=== PATIENT | female | born 1960 | race African-American/Black ===

== ENCOUNTER 2019-01-13 22:57 | Inpatient (IN) | payer OTHER ==
[2019-01-13 23:19] VITALS: BMI 30.9
--- NOTE | 2019-01-13 23:21 | PDOC ---
History of Present Illness - General Chief Complaint: Pain, Acute Stated Complaint: Flank Pain Time Seen by Provider: 01/13/19 23:20 - History of Present Illness Initial Comments: 01/13/19 23:20 Ms. Lima is a 58 yo female w/ pmh of kidney stones 6 months ago at another hospital who presents for evaluation of 2 hour history of sudden onset RLQ abdominal pain. Patient reports it is similar to her previous episode of kidney stones in nature. Ms. Lima reports she took an antibiotic she was given for her previous episode and had mild nausea afterwards. She had previously not taken the antibiotics proscribed to her however reports her pain had improved. The patient denies chest pain, shortness of breath, headache and dizziness. Denies fever, chills, nausea, vomit, diarrhea and constipation. Denies dysuria, frequency, urgency and hematuria. Past History - Past Medical History Allergies/Adverse Reactions: Allergies Allergy/AdvReac Type Severity Reaction Status Date / Time No Known Allergies Allergy Verified 01/13/19 23:19 Home Medications: Ambulatory Orders Cefuroxime Axetil [Ceftin -] 500 mg PO Q12H #20 tablet 01/14/19 Potassium Citrate [Potassium Citrate ER] 15 meq PO BID #60 tablet.er 01/14/19 Tamsulosin HCl [Flomax] 0.4 mg PO DAILY #30 capsule 01/14/19 Celecoxib [Celebrex -] 100 mg PO BID #60 capsule 01/15/19 - Suicide/Smoking/Psychosocial Hx Smoking History: Current every day smoker Have you smoked in the past 12 months: Yes Number of Cigarettes Smoked Daily: 5 Information on smoking cessation initiated: No Hx Alcohol Use: Yes Drug/Substance Use Hx: No Review of Systems - Review of Systems Comments:: 01/13/19 23:20 GENERAL/CONSTITUTIONAL: No fever or chills. No weakness. HEAD, EYES, EARS, NOSE AND THROAT: No change in vision. No ear pain or discharge. No sore throat. CARDIOVASCULAR: No chest pain or shortness of breath RESPIRATORY: No cough, wheezing, or hemoptysis. GASTROINTESTINAL: +RLQ pain as described. Mild nausea after taking unknown ABX, no vomiting. Single episode of loose stool today. GENITOURINARY: No dysuria, frequency, or change in urination. MUSCULOSKELETAL: No joint or muscle swelling or pain. No neck or back pain. SKIN: No rash NEUROLOGIC: No headache, vertigo, loss of consciousness, or change in strength/ sensation. ENDOCRINE: No increased thirst. No abnormal weight change HEMATOLOGIC/LYMPHATIC: No anemia, easy bleeding, or history of blood clots. ALLERGIC/IMMUNOLOGIC: No hives or skin allergy. *Physical Exam - Vital Signs Last Vital Signs Temp Pulse Resp BP Pulse Ox 97.7 F 62 19 169/89 97 01/13/19 22:57 01/13/19 22:57 01/13/19 22:57 01/13/19 22:57 01/13/19 22:57 - Physical Exam Comments: 01/13/19 23:21 GENERAL: Awake, alert, and fully oriented, in no acute distress HEAD: No signs of trauma, normocephalic, atraumatic EYES: PERRLA, EOMI, sclera anicteric, conjunctiva clear ENT: Auricles normal inspection, hearing grossly normal, nares patent, oropharynx clear without exudates. Moist mucosa NECK: Normal ROM, supple, no lymphadenopathy, JVD, or masses LUNGS: No distress, speaks full sentences, clear to auscultation bilaterally HEART: Regular rate and rhythm, normal S1 and S2, no murmurs, rubs or gallops, peripheral pulses normal and equal bilaterally. ABDOMEN: +RLQ TTP w/ R flank pain. Soft, normoactive bowel sounds. No guarding, no rebound. No masses EXTREMITIES: Normal inspection, Normal range of motion, no edema. No clubbing or cyanosis. NEUROLOGICAL: Cranial nerves II through XII grossly intact. Normal speech, normal gait, no focal sensorimotor deficits SKIN: Warm, Dry, normal turgor, no rashes or lesions noted. ED Treatment Course - LABORATORY CBC & Chemistry Diagram: 01/14/19 00:36 01/14/19 00:36 Medical Decision Making - Medical Decision Making 01/13/19 23:34 Ms. Lima is a 58 yo female w/ pmh as described who presents for evaluation of symptoms concerning for UTI vs. Pyelonephritis vs. nephrolithiasis. Patient evaluated accordingly with CBC/CMP/UA/UCx/PT/INR/PTT/CT spiral. Toradol given for symptomatic relief. 01/14/19 01:59 Patient noted to have UTI given WBC and UA results as below. Rocephin added on for treatment. Patient currently pending CT scan for r/o nephrolithiasis. Patient signed out to Dr. Javier for further evaluation. Laboratory Results - last 24 hr 01/14/19 01/14/19 01/14/19 00:10 00:36 00:36 WBC 15.6 H RBC 4.38 Hgb 14.2 Hct 41.5 MCV 94.7 MCH 32.5 MCHC 34.3 RDW 12.9 Plt Count 284 MPV 8.3 Absolute Neuts (auto) 12.6 H Neutrophils % 81.2 Lymphocytes % 13.7 Monocytes % 4.2 Eosinophils % 0.2 Basophils % 0.7 Nucleated RBC % 0 PT with INR 11.80 INR 1.00 PTT (Actin FS) 31.3 Sodium Potassium Chloride Carbon Dioxide Anion Gap BUN Creatinine Est GFR (CKD-EPI)AfAm Est GFR (CKD-EPI)NonAf Random Glucose Calcium Total Bilirubin AST ALT Alkaline Phosphatase Total Protein Albumin Urine Color Yellow Urine Appearance Cloudy Urine pH 6.5 Ur Specific [place] 1.027 Urine Protein 2+ H Urine Glucose (UA) Negative Urine Ketones Trace H Urine Blood 3+ H Urine Nitrite Negative Urine Bilirubin Negative Urine Urobilinogen 1.0 Ur Leukocyte Esterase 2+ H Urine WBC (Auto) 89 Urine RBC (Auto) 589 Urine Casts (Auto) 11 U Pathogenic Cast Auto No Result Required. U Epithel Cells (Auto) 4.7 U Sm Round Cell (Auto) No Result Required. Urine Crystals (Auto) No Result Required. Urine Bacteria (Auto) 283.5 01/14/19 00:36 WBC RBC Hgb Hct MCV MCH MCHC RDW Plt Count MPV Absolute Neuts (auto) Neutrophils % Lymphocytes % Monocytes % Eosinophils % Basophils % Nucleated RBC % PT with INR INR PTT (Actin FS) Sodium 142 Potassium 4.3 Chloride 106 Carbon Dioxide 29 Anion Gap 7 L BUN 12.0 Creatinine 1.0 Est GFR (CKD-EPI)AfAm 71.41 Est GFR (CKD-EPI)NonAf 61.62 Random Glucose 101 Calcium 9.0 Total Bilirubin 0.3 AST 26 ALT 34 Alkaline Phosphatase 149 H Total Protein 7.6 Albumin 4.0 Urine Color Urine Appearance Urine pH Ur Specific [place] Urine Protein Urine Glucose (UA) Urine Ketones Urine Blood Urine Nitrite Urine Bilirubin Urine Urobilinogen Ur Leukocyte Esterase Urine WBC (Auto) Urine RBC (Auto) Urine Casts (Auto) U Pathogenic Cast Auto U Epithel Cells (Auto) U Sm Round Cell (Auto) Urine Crystals (Auto) Urine Bacteria (Auto) *DC/Admit/Observation/Transfer Diagnosis at time of Disposition: Nephrolithiasis Hydronephrosis Qualifiers: Hydronephrosis type: unspecified Qualified Code(s): N13.30 - Unspecified hydronephrosis - Discharge Dispostion Disposition: HOME Condition at time of disposition: Fair - Referrals - Patient Instructions - Post Discharge Activity
[2019-01-13] MEDS ORDERED: KETOROLAC TROMETHAMINE 15 MG/ML VIAL IVPUSH ONE (23:32)
[2019-01-13] MEDS ORDERED: SODIUM CHLORIDE 1,000 ML IV STA (23:32)
[2019-01-13] MEDS ORDERED: ONDANSETRON 4 MG/2 ML VIAL IVPUSH ONE (23:33)
[2019-01-13] MEDS ORDERED: KETOROLAC TROMETHAMINE 15 MG/ML VIAL ONE (23:37)
[2019-01-13] MEDS ORDERED: ONDANSETRON 4 MG/2 ML VIAL ONE (23:37)
--- NOTE | 2019-01-13 23:57 | PDOC ---
Documentation entered by Umberto Edwards SCRIBE, acting as scribe for Marissa Vicente MD. Marissa Vicente MD: This documentation has been prepared by the Jerry vincent Joel, SCRIBE, under my direction and personally reviewed by me in its entirety. I confirm that the documentation accurately reflects all work, treatment, procedures, and medical decision making performed by me. Attending Attestation - Resident Resident Name: Roman Horn - ED Attending Attestation I have performed the following: I have examined & evaluated the patient, The case was reviewed & discussed with the resident, I agree w/resident's findings & plan, Exceptions are as noted - HPI HPI: 01/13/19 23:54 58 yo female has experienced rt sided back radiating to her rt groin for several hours no fever,no vomiting 01/14/19 00:11 The patient is a 58 year old female with a significant PMH of kidney stones & chronic cigarette use who presents to the emergency department with right side back pain & right flank pain which began acutely a few hours prior to arrival. She describes her back pain as localized on the right side with radiation along the right flank into the RLQ. The patients daughter aided with history and states the patient took a dose of antibiotics today she had leftover from a kidney stone 6 months ago. The patient is a poor historian but states her symptoms have improved while laying in the ED & is resting comfortably. The patient denies chest pain, shortness of breath, headache and dizziness. Denies fever, chills, nausea, vomit, diarrhea and constipation. Denies dysuria, frequency, urgency and hematuria. Allergies: NKA Past surgical history: None reported. Social history: Chronic smoker (1 pack/day). No reported alcohol or drug use. PCP: Dr. Gerry Phillips - Physicial Exam PE: 01/13/19 23:57 wnwd 58 yo female is resting comfortably on the gurney,conversing with her daughter head ncat eyes marcos eomi neck supple lungs cta b/l cvs [id number] abd no rebound, no guarding no rt flank pain appreciated ,she points her midline near L5 but there are no vertebral midline tenderness skin warm and dry neuro axox3, ambulatory psych calm - Medical Decision Making 01/14/19 00:02 diff diag includes kidney stones,UTI 01/14/19 01:56 labs reveal UTI, needs ct spriral s.o. to Dr Will
[2019-01-14 00:30] LABS: EPI CELLS 4.7 /HPF (0-5/HPF); HYALINE CASTS 11 /lpf (0-8); PH,URINE 6.5 (5.0-8.0); URINE APPEARANCE CLOUDY; URINE BACTERIA 283.5 /hpf (NEGATIVE); URINE BILIRUBIN NEGATIVE (NEGATIVE); URINE COLOR YELLOW; URINE GLUCOSE (UA) NEGATIVE (NEGATIVE); URINE KETONE TRACE (NEGATIVE); URINE LEUK ESTERASE 2+ (NEGATIVE); URINE NITRITE NEGATIVE (NEGATIVE); URINE PROTEIN 2+ (NEGATIVE); URINE RBC 589 /hpf (0-4); URINE WBC 89 /hpf (0-5)
[2019-01-14 01:02] LABS: BASO % 0.7 % (0-2.0); EOS % 0.2 % (0-4.5); HEMATOCRIT 41.5 % (32.4-45.2); HEMOGLOBIN 14.2 GM/dL (10.7-15.3); LYMPH % 13.7 % (8-40); MCH 32.5 pg (25.7-33.7); MCHC 34.3 g/dl (32.0-36.0); MEAN CELL VOLUME 94.7 fl (80-96); MEAN PLT VOLUME 8.3 fl (7.5-11.1); MONO % 4.2 % (3.8-10.2); NEUT % 81.2 % (42.8-82.8); PLATELET COUNT 284 K/MM3 (134-434); RBC 4.38 M/mm3 (3.60-5.2); RDW 12.9 % (11.6-15.6); WHITE BLOOD COUNT 15.6 K/mm3 (4.0-10.0)
[2019-01-14 01:11] LABS: PROTHROMBIN TIME (PATIENT) 11.8 SEC (9.7-13.0)
[2019-01-14 01:14] LABS: ACTIVATED PTT 31.3 SECONDS (25.2-36.5)
[2019-01-14 01:35] LABS: BILIRUBIN,TOTAL 0.3 mg/dL (0.2-1); POTASSIUM 4.3 mmol/L (3.5-5.1); TOT PROT 7.6 g/dl (6.4-8.2)
[2019-01-14] MEDS ORDERED: CEFTRIAXONE 1,000 MG in DEXTROSE 5%-WATER - 50 ML IVPB ONE ×2 (01:58→04:44)
--- NOTE | 2019-01-14 02:00 | PDOC ---
*Physical Exam - Vital Signs Last Vital Signs Temp Pulse Resp BP Pulse Ox 97.7 F 62 19 169/89 97 01/13/19 22:57 01/13/19 22:57 01/13/19 22:57 01/13/19 22:57 01/13/19 22:57 - Physical Exam Comments: 01/14/19 03:54 Awake, alert, well appearing ED Treatment Course - LABORATORY CBC & Chemistry Diagram: 01/14/19 00:36 01/14/19 00:36 - ADDITIONAL ORDERS Additional order review: Laboratory Results 01/14/19 01/14/19 01/14/19 00:36 00:36 00:10 PT with INR 11.80 INR 1.00 PTT (Actin FS) 31.3 Sodium 142 Potassium 4.3 Chloride 106 Carbon Dioxide 29 Anion Gap 7 L BUN 12.0 Creatinine 1.0 Est GFR (CKD-EPI)AfAm 71.41 Est GFR (CKD-EPI)NonAf 61.62 Random Glucose 101 Calcium 9.0 Total Bilirubin 0.3 AST 26 ALT 34 Alkaline Phosphatase 149 H Total Protein 7.6 Albumin 4.0 Urine Color Yellow Urine Appearance Cloudy Urine pH 6.5 Ur Specific [place] 1.027 Urine Protein 2+ H Urine Glucose (UA) Negative Urine Ketones Trace H Urine Blood 3+ H Urine Nitrite Negative Urine Bilirubin Negative Urine Urobilinogen 1.0 Ur Leukocyte Esterase 2+ H Urine WBC (Auto) 89 Urine RBC (Auto) 589 Urine Casts (Auto) 11 U Pathogenic Cast Auto No Result Required. U Epithel Cells (Auto) 4.7 U Sm Round Cell (Auto) No Result Required. Urine Crystals (Auto) No Result Required. Urine Bacteria (Auto) 283.5 01/14/19 00:36 RBC 4.38 MCV 94.7 MCHC 34.3 RDW 12.9 MPV 8.3 Neutrophils % 81.2 Lymphocytes % 13.7 Monocytes % 4.2 Eosinophils % 0.2 Basophils % 0.7 - Medications Given in the ED: ED Medications Discontinued Medications Generic Name Dose Route Start Last Admin Trade Name Freq PRN Reason Stop Dose Admin Sodium Chloride 1,000 mls @ 1,000 mls/hr 01/13/19 23:32 01/14/19 00:25 Normal Saline - IV 01/14/19 00:31 1,000 mls/hr ASDIR STA Administration Ketorolac Tromethamine 15 mg 01/13/19 23:32 01/14/19 00:20 Toradol Injection - IVPUSH 01/13/19 23:33 15 mg ONCE ONE Administration Ondansetron HCl 4 mg 01/13/19 23:33 01/14/19 00:25 Zofran Injection IVPUSH 01/13/19 23:34 4 mg ONCE ONE Administration Medical Decision Making - Medical Decision Making 01/14/19 02:00 Patient signed out by Dr. Horn (Resident) and Dr. Vicente (Attending) @ 0200 58 y/o female with a PMHx of nephrolithiasis who presents w/acute onset or R sided back and flank pain. UA showed 3+ blood, 2+ Leukocyte Esterase, 283 WBC. S/p Ceftriaxone. Spiral CT pending. Likely disposition is home without outpatient Abx pending CT results 01/14/19 02:28 Patient reassessed @ bedside, well appearing, comfortable, requesting d/c home. Counseled to wait for CT results 01/14/19 03:24 Patient has 1.1 cm stone in R Renal Pelvis w/mild hydronephrosis. As patient has leukocytosis (15.6) will admit for lithotripsy. 01/14/19 03:36 Patient and patient's family @ bedside counseled on plan of care. Amenable to admission. Hospitalist microblogged 01/14/19 03:52 Case d/w with Hospitalist team in the ED. Will admit to inpatient medicine service. *DC/Admit/Observation/Transfer Diagnosis at time of Disposition: Nephrolithiasis, Hydronephrosis - Discharge Dispostion Condition at time of disposition: Fair Decision to Admit order: Yes - Referrals Referrals: Karthik Juarez [Primary Care Provider] - - Patient Instructions - Post Discharge Activity
[2019-01-14] MEDS ORDERED: CEFTRIAXONE 1 GM/50 ML BAG ONE ×2 (02:16→04:56)
--- NOTE | 2019-01-14 04:27 | PN ---
Teaching Attending Note Name of Resident: Jhoan Flowers ATTENDING PHYSICIAN STATEMENT I saw and evaluated the patient. I reviewed the resident's note and discussed the case with the resident. I agree with the resident's findings and plan as documented. SUBJECTIVE: Seen and examined; please refer to resident note for further historical information. Briefly, this is a 58 y/o with known renal stones (1 month ago dx in [facility], noncompliant with abx) who does not see a urologist presenting with worsening R-sided abd pain radiating through the R-flank. It became intense this PM and she chose to come to the hospital. She denies systemic sx, denies dysuria or hematuria. Bharti did not relive her sx. She had an incident of diarrhea today. No other complaints or med changes and does not take any Rx meds. 10 sys ROS done and negative aside from HPI PMH, PSH, FH, SH reviewed No home meds; unknown abx but was noncompliant last month's visit in [facility] OBJECTIVE: VS, labs, imaging reviewed NAD, AAO, resting comfortably in bed NC AT EOMI PERRLA RRR s1/2 no mgr Lungs CTAB, w/ sym exp NT ND +BS CN2-12 wnl, no fnd Normal mood, appropriate behavior CT shows 1.1cm stone in the R-renal pelvis with mild hydro, colonic -osis without -itis EKG pending CXR pending ASSESSMENT AND PLAN: Patient who takes no Rx medication presents with 1.1cm renal stone R-sided with mild hydro and associated +UA; she was noncompliant with abx given to her for recent infection ~1 month ago (records pending) 1) Renal Stone with hydronephrosis -Monitor Cr; monitor UOP. -Consulting urology; appreciate specialist input -Starting flomax, LR @100cc/hr. She doesn't drink any water at home, per the family, which likely precipitated her intial stone. Would be helpful to obtain records from the other facility. 2) Acute Cystitis with hematuria -Noncompliant with abx from OSH; obtain old records in AM to get cx data. Empiric ceftriaxone. Not septic. 3) Diarrhea -Check lactoferrin; very very low risk for Cdif as this happened only today, abx were >1 month ago and she was noncompliant. If negative can give immodium. No diarrhea in the 8 hours she has been here. 4) Obesity -BMI 30.9; does not follow regularly with PCP. Refer to resident clinic for A1c , lipids, BP screening, TSH, etc. Needs USPF appropriate screening for primary issues. 5) Noncompliance -Cinema Operator prior to DC 6) Elevated Alk Phos -Check GGT Full Code
[2019-01-14] MEDS ORDERED: IBUPROFEN 800 MG/8 ML IJ IVPB PRN (04:41)
[2019-01-14] MEDS ORDERED: ACETAMINOPHEN 1000 MG/100 ML VIAL (NON FORMULARY) IVPB PRN (04:42)
[2019-01-14] MEDS ORDERED: SODIUM CHLORIDE 1,000 ML IV SCH (04:45)
--- NOTE | 2019-01-14 04:54 | HP ---
CHIEF COMPLAINT: Abdominal pain PCP: None HISTORY OF PRESENT ILLNESS: Pt. is a 58 y.o. F w/ no PMHx. presents to the ED for ~2 days of abdominal pain radiating to the right back. Pt. states that 1 month ago she had similar symptoms and went to a facility in [facility] where she was diagnosed with a kidney stone and prescribed ?antibiotics. Pt. states that she did not take her medications as prescribed. Pt. stated that at that time her renal stone was smaller. Pt. is a poor historian and was frequently contradicted by her daughter who augmented the history at bedside. Per daughter Pt. does not drink any water. Pt. endorses 3 episodes of diarrhea over the last day. Pt. denies nausea, vomiting, fever, chills, dysuria, polyuria , chest pain, shortness of breath or any other symptoms. ER course was notable for: (1)UA/UCx., Spiral CT, IVF (2) Toradol, Zofran (3) Ceftriaxone Recent Travel: No PAST MEDICAL HISTORY: As above PAST SURGICAL HISTORY: Denies Social History: Smokin/2 PPD; per Pt.; however 2PPD per daughter Alcohol: 4x per year per Pt. however drinks every 2 weeks per daughter Drugs: Remote Cocaine used in past Family History: Mother: Alzheimers dementia diagnosed in 70s- ; Father- Alzheimers, Sister- Alzheimers Allergies No Known Allergies Allergy (Verified 01/13/19 23:19) HOME MEDICATIONS: REVIEW OF SYSTEMS As above PHYSICAL EXAMINATION Vital Signs - 24 hr 01/13/19 22:57 Temperature 97.7 F Pulse Rate 62 Respiratory 19 Rate Blood Pressure 169/89 O2 Sat by Pulse 97 Oximetry (%) GENERAL: Awake, alert, and fully oriented, in no acute distress. HEAD: Normal with no signs of trauma. EYES: Pupils equal, round and reactive to light, extraocular movements intact, sclera anicteric, conjunctiva clear. EARS, NOSE, THROAT: Ears normal, nares patent, oropharynx clear without exudates. Moist mucous membranes. NECK: Normal range of motion, supple without lymphadenopathy, JVD, or masses. LUNGS: Breath sounds equal, clear to auscultation bilaterally. No wheezes, and no crackles. No accessory muscle use. HEART: Regular rate and rhythm, normal S1 and S2 without murmur ABDOMEN: Soft, nontender, not distended, normoactive bowel sounds, no guarding, no rebound, no masses. MUSCULOSKELETAL: Normal range of motion at all joints. No CVA tenderness. UPPER EXTREMITIES: 2+ radial pulses, warm, well-perfused. No cyanosis. No clubbing. No peripheral edema. LOWER EXTREMITIES: 2+ dorsal pedal pulses, warm, well-perfused. No calf tenderness. No peripheral edema. NEUROLOGICAL: Normal speech. Gait not assessed PSYCHIATRIC: Cooperative. Good eye contact. Appropriate mood and affect. SKIN: Warm, dry, normal turgor, no rashes or lesions noted, normal capillary refill. Laboratory Results - last 24 hr 01/14/19 01/14/19 01/14/19 00:10 00:36 00:36 WBC 15.6 H RBC 4.38 Hgb 14.2 Hct 41.5 MCV 94.7 MCH 32.5 MCHC 34.3 RDW 12.9 Plt Count 284 MPV 8.3 Absolute Neuts (auto) 12.6 H Neutrophils % 81.2 Lymphocytes % 13.7 Monocytes % 4.2 Eosinophils % 0.2 Basophils % 0.7 Nucleated RBC % 0 PT with INR 11.80 INR 1.00 PTT (Actin FS) 31.3 Sodium Potassium Chloride Carbon Dioxide Anion Gap BUN Creatinine Est GFR (CKD-EPI)AfAm Est GFR (CKD-EPI)NonAf Random Glucose Calcium Total Bilirubin AST ALT Alkaline Phosphatase Total Protein Albumin Urine Color Yellow Urine Appearance Cloudy Urine pH 6.5 Ur Specific [place] 1.027 Urine Protein 2+ H Urine Glucose (UA) Negative Urine Ketones Trace H Urine Blood 3+ H Urine Nitrite Negative Urine Bilirubin Negative Urine Urobilinogen 1.0 Ur Leukocyte Esterase 2+ H Urine WBC (Auto) 89 Urine RBC (Auto) 589 Urine Casts (Auto) 11 U Pathogenic Cast Auto No Result Required. U Epithel Cells (Auto) 4.7 U Sm Round Cell (Auto) No Result Required. Urine Crystals (Auto) No Result Required. Urine Bacteria (Auto) 283.5 01/14/19 00:36 WBC RBC Hgb Hct MCV MCH MCHC RDW Plt Count MPV Absolute Neuts (auto) Neutrophils % Lymphocytes % Monocytes % Eosinophils % Basophils % Nucleated RBC % PT with INR INR PTT (Actin FS) Sodium 142 Potassium 4.3 Chloride 106 Carbon Dioxide 29 Anion Gap 7 L BUN 12.0 Creatinine 1.0 Est GFR (CKD-EPI)AfAm 71.41 Est GFR (CKD-EPI)NonAf 61.62 Random Glucose 101 Calcium 9.0 Total Bilirubin 0.3 AST 26 ALT 34 Alkaline Phosphatase 149 H Total Protein 7.6 Albumin 4.0 Urine Color Urine Appearance Urine pH Ur Specific [place] Urine Protein Urine Glucose (UA) Urine Ketones Urine Blood Urine Nitrite Urine Bilirubin Urine Urobilinogen Ur Leukocyte Esterase Urine WBC (Auto) Urine RBC (Auto) Urine Casts (Auto) U Pathogenic Cast Auto U Epithel Cells (Auto) U Sm Round Cell (Auto) Urine Crystals (Auto) Urine Bacteria (Auto) ASSESSMENT/PLAN: Pt. is a 58 y.o. F w/ no PMHx. presents to the ED for ~2 days of abdominal pain radiating to the right back. #Acute Cystitis w/ Nephrolithiasis and hematuria Spiral CT: 1.1 cm right renal pelvi stone w/ minimal hydronephrosis, 3.6 cm hepatic cyst, few diverticula, and small right inguinal hernia w/ fat UA: 2+ LE, 89 WBCs, 3+ blood, 2+ protein, pH 6.5 Leukocytosis to 15.6 afebrile Urology Consult (Dr. Valenzuela) appreciated, will likely need lithotripsy given size of the stone ( larger than 5mm but less than 2cm) after clearing of infection. IV Ofirmev with IV Caldor to pain NPO IVF f/u CXR f/u EKG for QTc given Zofran for nausea started Tamsulosin Strain Urine c/w Ceftriaxone for UTI pending UCx. for sensitivities #Elevated Alkaline Phosphatase likely acute phase reactant however will r/o biliary disease f/u GGT If elevated will get Abd. US--> pending negative results would consider AMA and anti-smooth muscle studies #Diarrhea f/u Lactoferrin Pt. states last BM was at 9:30 pm pending lactoferrin results would consider immodium for future episodes as there is low suspicion for infectious etiology at this time #Elevated BP and Prophylaxis Initial BP: 169/89 may be due to pain, will c/w monitoring, may need antihypertensives on D/c Will need outpatient follow up for primary care preventive measures as well ( including further workup on possible early onset dementia given strong family Hx.) #FEN NS @ 100ml/hr, encourage liberal PO water intake monitor electrolytes and replete as needed NPO- pending urological intervention #DVT Ppx. Hep. SQ Visit type - Emergency Visit Emergency Visit: Yes ED Registration Date: 01/14/19 Care time: The patient presented to the Emergency Department on the above date and was hospitalized for further evaluation of their emergent condition. - New Patient This patient is new to me today: Yes Date on this admission: 01/14/19 - Critical Care Critical Care patient: No
[2019-01-14] MEDS ORDERED: HEPARIN NA (PORCINE) 5,000 UNITS/ML 1ML VIAL SQ SCH (06:45)
[2019-01-14] MEDS ORDERED: TAMSULOSIN HCL 0.4 MG CAP ONE (09:02)
[2019-01-14] MEDS: TAMSULOSIN HCL 0.4 MG CAP PO SCH (09:08)
[2019-01-14] MEDS: SODIUM CHLORIDE 1,000 ML IV SCH (09:08)
--- NOTE | 2019-01-14 11:39 | PN ---
Teaching Attending Note Name of Resident: Duncan Phillips ATTENDING PHYSICIAN STATEMENT I saw and evaluated the patient. I reviewed the resident's note and discussed the case with the resident. I agree with the resident's findings and plan as documented. SUBJECTIVE: No fever or chills. No pain, denies any dysuria, no Abd pain . not aware of any liver problems, denies using abx for UTI last month OBJECTIVE: NAD , awake, poor cooperation CV: RRR, did not allow for apex exam, but in other areas no murmurs were heard Lungs: CTAB Abd: soft, NT, ND , NL Bs , No CVA tenderness Ext : no edema or erythema, no signs of fungal infection among toes ASSESSMENT AND PLAN: 58 y/o lady with h/o nephrolithiasis, recent partially treated UTI, and non compiance nad no medical f/u who presented with R sided flank pain and was found to have an obstructing R pelvic stone with hydronephrisis 1- Obstructing R pelvic stone with hydronephrisis: - IVF - urology consult - strain all urine 2- Complicated UTI in setting of Obstruction and with leukocytosis: - cont ceftriaxone - follow urine cx - obtain out pt urine cx. 3- Incidental finding of hypdense lesions in liver: - will obtain US. - repeat LFTS and follow GGT - further w/u depends on US result. 4- DVT PX : hold heparin sq in case Uro wants to intervene. once this is cleared, can resume DVT Px . start SCDs
--- NOTE | 2019-01-14 12:04 | EKG ---
Test Reason : Blood Pressure : / mmHG Vent. Rate : 050 BPM Atrial Rate : 050 BPM P-R Int : 140 ms QRS Dur : 082 ms QT Int : 494 ms P-R-T Axes : 068 059 058 degrees QTc Int : 450 ms SINUS BRADYCARDIA OTHERWISE NORMAL ECG NO PREVIOUS ECGS AVAILABLE Confirmed by MD EDEN, LUIS ([id number]) on 01/14/2019 12:04:15 PM Referred By: Dontae INFANTE Confirmed By:LUIS HARMON MD
--- NOTE | 2019-01-14 15:34 | PN ---
Physical Exam: SUBJECTIVE: Patient seen and examined at bedside. Denies back or abdominal pain. Denies fever as well. OBJECTIVE: Vital Signs Period Temp Pulse Resp BP Sys/Bautista Pulse Ox Last 24 Hr 97.7 F-98.4 F 56-62 16-20 101-169/43-99 95-98 GENERAL: NAD HEAD: Normal with no signs of trauma. EYES: EOMI, Sclera Clear ENT: MMM NECK: Trachea midline, full range of motion, supple. LUNGS: CTAB HEART: RRR ABDOMEN: NO CVA tenderness, rigidity, guarding EXTREMITIES: 2+ pulses, warm, well-perfused, no edema. NEUROLOGICAL: Cranial nerves II through XII grossly intact. Normal speech, gait not observed. PSYCH: Normal mood, normal affect. SKIN: Warm, dry, normal turgor, no rashes or lesions noted Laboratory Results - last 24 hr 01/14/19 01/14/19 01/14/19 00:10 00:36 00:36 WBC 15.6 H RBC 4.38 Hgb 14.2 Hct 41.5 MCV 94.7 MCH 32.5 MCHC 34.3 RDW 12.9 Plt Count 284 MPV 8.3 Absolute Neuts (auto) 12.6 H Neutrophils % 81.2 Lymphocytes % 13.7 Monocytes % 4.2 Eosinophils % 0.2 Basophils % 0.7 Nucleated RBC % 0 PT with INR 11.80 INR 1.00 PTT (Actin FS) 31.3 Sodium Potassium Chloride Carbon Dioxide Anion Gap BUN Creatinine Est GFR (CKD-EPI)AfAm Est GFR (CKD-EPI)NonAf Random Glucose Calcium Total Bilirubin AST ALT Alkaline Phosphatase Total Protein Albumin Urine Color Yellow Urine Appearance Cloudy Urine pH 6.5 Ur Specific [place] 1.027 Urine Protein 2+ H Urine Glucose (UA) Negative Urine Ketones Trace H Urine Blood 3+ H Urine Nitrite Negative Urine Bilirubin Negative Urine Urobilinogen 1.0 Ur Leukocyte Esterase 2+ H Urine WBC (Auto) 89 Urine RBC (Auto) 589 Urine Casts (Auto) 11 U Pathogenic Cast Auto No Result Required. U Epithel Cells (Auto) 4.7 U Sm Round Cell (Auto) No Result Required. Urine Crystals (Auto) No Result Required. Urine Bacteria (Auto) 283.5 01/14/19 00:36 WBC RBC Hgb Hct MCV MCH MCHC RDW Plt Count MPV Absolute Neuts (auto) Neutrophils % Lymphocytes % Monocytes % Eosinophils % Basophils % Nucleated RBC % PT with INR INR PTT (Actin FS) Sodium 142 Potassium 4.3 Chloride 106 Carbon Dioxide 29 Anion Gap 7 L BUN 12.0 Creatinine 1.0 Est GFR (CKD-EPI)AfAm 71.41 Est GFR (CKD-EPI)NonAf 61.62 Random Glucose 101 Calcium 9.0 Total Bilirubin 0.3 AST 26 ALT 34 Alkaline Phosphatase 149 H Total Protein 7.6 Albumin 4.0 Urine Color Urine Appearance Urine pH Ur Specific [place] Urine Protein Urine Glucose (UA) Urine Ketones Urine Blood Urine Nitrite Urine Bilirubin Urine Urobilinogen Ur Leukocyte Esterase Urine WBC (Auto) Urine RBC (Auto) Urine Casts (Auto) U Pathogenic Cast Auto U Epithel Cells (Auto) U Sm Round Cell (Auto) Urine Crystals (Auto) Urine Bacteria (Auto) Active Medications Generic Name Dose Route Start Last Admin Trade Name Freq PRN Reason Stop Dose Admin Acetaminophen 1,000 mg 01/14/19 04:42 Ofirmev Injection - IVPB Q8H PRN PAIN LEVEL 6-10 Ceftriaxone Sodium 1 gm/ 50 mls @ 100 mls/hr 01/15/19 10:00 Dextrose IVPB DAILY [facility] Protocol Sodium Chloride 1,000 mls @ 150 mls/hr 01/14/19 08:52 01/14/19 09:08 Normal Saline - IV 150 mls/hr ASDIR JONATHAN Administration Ibuprofen 800 mg 01/14/19 04:41 Caldolor Injection - IVPB Q8H PRN PAIN LEVEL 6-10 Tamsulosin HCl 0.4 mg 01/14/19 08:30 01/14/19 09:08 Flomax - PO 0.4 mg DAILY@0830 [facility] Administration ASSESSMENT/PLAN: Pt. is a 58 y.o. F w/ no PMHx. presents to the ED for ~2 days of abdominal pain radiating to the right back. #Nephrolithiasis Spiral CT: 1.1 cm right renal pelvi stone w/ minimal hydronephrosis, 3.6 cm hepatic cyst, few diverticula, and small right inguinal hernia w/ fat UA: 2+ LE, 89 WBCs, 3+ blood, 2+ protein, pH 6.5 Leukocytosis to 15.6, repeat CBC in am afebrile Uroogy on board-Dr Rodgers---> No evidence of infection or sepsis. Discussed outpatient ESWL as option as well as alkanlinization therapy. IV Ofirmev with IV Caldor to pain IVF Tamsulosin Strain Urine c/w Ceftriaxone for UTI pending UCx. for sensitivities #Liver Cysts Ab U/s--. Multiple Hepatic Cyts with diffuse fatty infiltration of the liver #FEN NS @ 150ml/hr, encourage liberal PO water intake monitor electrolytes and replete as needed Regular Diet #DVT Ppx. Hep. SQ Visit type - Emergency Visit Emergency Visit: Yes ED Registration Date: 01/14/19 Care time: The patient presented to the Emergency Department on the above date and was hospitalized for further evaluation of their emergent condition. - New Patient This patient is new to me today: Yes Date on this admission: 01/14/19 - Critical Care Critical Care patient: No - Discharge Referral Referred to [facility] Med P.C.: No
--- NOTE | 2019-01-14 17:47 | CON.GU ---
Consult Consult Specialty:: Referred by:: Medicine Reason for Consultation:: renal calculus - History of Present Illness Chief Complaint: renal calculus History of Present Illness: patient is a 58 year old female with her first kidney stone. The stone is approximately 1cm and is in the renal pelvis. Mild hydro noted on CT on admission. She has been pain and symptom free since admission. No signs of sepsis. No family history noted. - History Source History Provided By: Patient, Medical Record Limitations to Obtaining History: No Limitations - Past Medical History Renal/: No: Renal Failure, Renal Inusuff, BPH, Cancer, Hematuria, Hemodialysis , Neurogenic Bladder, Renal Calculi, UTI, Other - Alcohol/Substance Use Hx Alcohol Use: Yes - Smoking History Smoking history: Current every day smoker Have you smoked in the past 12 months: Yes Aproximately how many cigarettes per day: 5 Home Medications - Allergies Allergies/Adverse Reactions: Allergies Allergy/AdvReac Type Severity Reaction Status Date / Time No Known Allergies Allergy Verified 01/13/19 23:19 - Home Medications Home Medications: Ambulatory Orders NK [No Known Home Medication] 01/14/19 Review of Systems - Review of Systems Constitutional: denies: Chills, Fever Genitourinary: reports: Flank Pain Physical Exam- Vital Signs: Vital Signs Temperature 98.0 F 01/14/19 17:19 Pulse Rate 57 L 01/14/19 17:19 Respiratory Rate 18 01/14/19 17:19 Blood Pressure 109/77 01/14/19 17:19 O2 Sat by Pulse Oximetry (%) 98 01/14/19 11:14 Constitutional: Yes: Well Nourished, No Distress, Calm Renal/: No: Bladder Distention, CVA Tenderness - Left, CVA Tenderness - Right , Perez Present, Hematuria, Incontinence Labs: CBC, BMP 01/14/19 00:36 01/14/19 00:36 Imaging - Results Cat Scan: Report Reviewed Assessment/Plan renal pelvis stone- patient is asymptomatic and pain free. No evidence of infection or sepsis. Discussed outpatient ESWL as option as well as alkanlinization therapy. will rx for flomax, abx, pain meds and potassium citrate with short term follow in my office within the week. [phone]
[2019-01-15] MEDS: KETOROLAC TROMETHAMINE 10 MG TABLET PO SCH ×3 (00:35→14:06)
[2019-01-15 06:14] VITALS: TEMP 97.8
[2019-01-15] MEDS ORDERED: DEXTROSE 5%-WATER - 50 ML IVPB ONE (08:42)
[2019-01-15] MEDS ORDERED: cefTRIAXone SODIUM 1 GM VIAL ONE (08:42)
[2019-01-15] MEDS: TAMSULOSIN HCL 0.4 MG CAP PO SCH (09:56)
[2019-01-15] MEDS ORDERED: CEFTRIAXONE 1 GM in DEXTROSE 5%-WATER - 50 ML IVPB SCH (10:00)
[2019-01-15] MEDS: SODIUM CHLORIDE 1,000 ML IV SCH (10:09)
--- NOTE | 2019-01-15 11:25 | DS ---
Physical Exam: SUBJECTIVE: Patient seen and examined at bedside. Denies fever, chills, or flank pain. OBJECTIVE: Vital Signs Period Temp Pulse Resp BP Sys/Bautista Pulse Ox Last 24 Hr 97.8 F-98.3 F 49-61 18-20 109-127/50-77 96-96 PHYSICAL EXAM GENERAL: NAD HEAD: Normal with no signs of trauma. EYES: EOMI Sclera Clear NECK: Trachea midline, full range of motion, supple. LUNGS: CTAB. HEART: RRR S1S2. ABDOMEN: Soft NDNT, No CVA tenderness. EXTREMITIES: No CCE NEUROLOGICAL: Cranial nerves II through XII grossly intact. PSYCH: Normal mood, normal affect. SKIN: Warm, dry, normal turgor, no rashes or lesions noted. LABS HOSPITAL COURSE: Date of Admission:01/14/19 Pt. is a 58 y.o. F w/ no PMHx. presents to the ED for ~2 days of abdominal pain radiating to the right back. Urinalysis revealed 2+ LE, 89 WBCs, 3+ blood, 2+ protein, pH 6.5. CTAP revealed a 1.1 cm right renal pelvi stone w/ minimal hydronephrosis, 3.6 cm hepatic cyst, few diverticula, and small right inguinal hernia w/ fat. Sonogram revealed R nephrolithiasis w/ no evidence of obstructive uropathy. Urology was consulted who recommended ESWL to break stone as outpatient as patient exhibited no signs/symptoms of sepsis. Pt's initial WBC was 15.8. Repeat CBC was ordered however pt refused to have her blood drawn. Pt was discharged on PO ABx, Potassium Citrate, and Flomax and given detailed instructions to follow up this Sunday with Urology. Date of Discharge: 01/15/19 Minutes to complete discharge: 35 Discharge Summary Reason For Visit: HYDRONEPHROSIS CALCULUS OF KIDNEY Current Active Problems Hydronephrosis (Acute) Nephrolithiasis (Acute) Condition: Fair - Instructions Diet, Activity, Other Instructions: You presented to the hospital due to back pain. You were found to have a kidney stone. You will need to follow up with the Urologist- Dr Rodgers after you leave the hospital to undergo a procedure to break up the stone. [phone]. A referral has been provided for you in your discharge paperwork. Your appointment is scheduled on Sunday01/21/5019, please samantha the office to confirm the time. Please take the following antibiotic which has been prescribed to you- Ceftin for 10 Days as prescribed. Potassium Citrate as prescribed Flomax as prescribed. Will will follow up with the urine culture and inform you if the antibiotic we have prescribed to you is effective. Please return to the emergency department if you begin to experience fever, fast heart beat, or continuing abdominal/back pain. Referrals: Jules Garrido MD [Staff Physician] - 01/21/19 10:00 am (Please call office to confirm appointment. ) - Home Medications Comprehensive Discharge Medication List: Ambulatory Orders Cefuroxime Axetil [Ceftin -] 500 mg PO Q12H #20 tablet 01/14/19 Potassium Citrate [Potassium Citrate ER] 15 meq PO BID #60 tablet.er 01/14/19 Tamsulosin HCl [Flomax] 0.4 mg PO DAILY #30 capsule 01/14/19 This patient is new to me today: No Emergency Visit: Yes ED Registration Date: 01/14/19 Care time: The patient presented to the Emergency Department on the above date and was hospitalized for further evaluation of their emergent condition. Critical Care patient: No - Discharge Referral Referred to [facility] Med P.C.: No
[2019-01-15 12:01] VITALS: BP 146/85; PULSE 53
--- NOTE | 2019-01-15 13:54 | PN ---
Teaching Attending Note Name of Resident: Duncan Phillips ATTENDING PHYSICIAN STATEMENT I saw and evaluated the patient. I reviewed the resident's note and discussed the case with the resident. I agree with the resident's findings and plan as documented. SUBJECTIVE: Patient has no further pain. No shortness of breath , no nausea or vomiting. OBJECTIVE: Vital Signs Temperature 97.8 F 01/15/19 10:00 Pulse Rate 53 L 01/15/19 10:00 Respiratory Rate 18 01/15/19 10:00 Blood Pressure 146/85 01/15/19 10:00 O2 Sat by Pulse Oximetry (%) 96 01/15/19 09:00 GENERAL: The patient is awake, alert, and fully oriented, in no acute distress. HEAD: Normal with no signs of trauma. EYES: PERRL, extraocular movements intact, sclera anicteric, conjunctiva clear. ENT: Ears normal, oropharynx clear without exudates, moist mucous membranes. NECK: Trachea midline, full range of motion, supple. LUNGS: Breath sounds equal, clear to auscultation bilaterally, no wheezes, no crackles, no accessory muscle use. HEART: Regular rate and rhythm, S1, S2 without murmur, rub or gallop. ABDOMEN: Soft, nontender, nondistended, normoactive bowel sounds, no guarding, no rebound, no hepatosplenomegaly, no masses. No CVA tenderness. EXTREMITIES: 2+ pulses, warm, well-perfused, no edema. NEUROLOGICAL: Cranial nerves II through XII grossly intact. Normal speech, gait not observed. PSYCH: Normal mood, normal affect. SKIN: Warm, dry, normal turgor, no rashes or lesions noted CMP Sodium 142 mmol/L (136-145) 01/14/19 00:36 Potassium 4.3 mmol/L (3.5-5.1) 01/14/19 00:36 Chloride 106 mmol/L (98-107) 01/14/19 00:36 Carbon Dioxide 29 mmol/L (21-32) 01/14/19 00:36 Anion Gap 7 MMOL/L (8-16) L 01/14/19 00:36 BUN 12.0 mg/dL (7-18) 01/14/19 00:36 Creatinine 1.0 mg/dL (0.55-1.3) 01/14/19 00:36 Est GFR (CKD-EPI)AfAm 71.41 01/14/19 00:36 Est GFR (CKD-EPI)NonAf 61.62 01/14/19 00:36 Random Glucose 101 mg/dL (74-106) 01/14/19 00:36 Calcium 9.0 mg/dL (8.5-10.1) 01/14/19 00:36 Total Bilirubin 0.3 mg/dL (0.2-1) 01/14/19 00:36 AST 26 U/L (15-37) 01/14/19 00:36 ALT 34 U/L (13-61) 01/14/19 00:36 Alkaline Phosphatase 149 U/L (45-117) H 01/14/19 00:36 Total Protein 7.6 g/dl (6.4-8.2) 01/14/19 00:36 Albumin 4.0 g/dl (3.4-5.0) 01/14/19 00:36 Home Medications Medication Instructions Recorded Cefuroxime Axetil [Ceftin -] 500 mg PO Q12H #20 tablet 01/14/19 Potassium Citrate [Potassium 15 meq PO BID #60 tablet.er 01/14/19 Citrate ER] Tamsulosin HCl [Flomax] 0.4 mg PO DAILY #30 capsule 01/14/19 Celecoxib [Celebrex -] 100 mg PO BID #60 capsule 01/15/19 Urine Test Results Urine Color Yellow 01/14/19 00:10 Urine Appearance Cloudy 01/14/19 00:10 Urine pH 6.5 (5.0-8.0) 01/14/19 00:10 Ur Specific [place] 1.027 (1.010-1.035) 01/14/19 00:10 Urine Protein 2+ (NEGATIVE) H 01/14/19 00:10 Urine Glucose (UA) Negative (NEGATIVE) 01/14/19 00:10 Urine Ketones Trace (NEGATIVE) H 01/14/19 00:10 Urine Blood 3+ (NEGATIVE) H 01/14/19 00:10 Urine Nitrite Negative (NEGATIVE) 01/14/19 00:10 Urine Bilirubin Negative (NEGATIVE) 01/14/19 00:10 Ur Leukocyte Esterase 2+ (NEGATIVE) H 01/14/19 00:10 US of abdomen: multiple hepatic cysts with diffuse fatty infiltration of the liver ASSESSMENT AND PLAN: Patient is a 58yo female with PMHx of nephrolithiasis, who presented with Right sided flank pain and was found to have non-obstructing R pelvic stone with mild hydronephrisis . # Right nephrolithiasis with no evidence of obstructing uropathy on abdominal CT. # Complicated UTI with leukocytosis: on IV ceftriaxone, patient refused repeat CBC for follow up. Patient is being discharged home on Ceftin as per urologist - follow urine cx , # Incidental finding of Hepatic cysts with diffuse fatty infiltration of the liver: follow up GI as an outpatient. discharge patient home
== END 2019-01-15 13:52 | disposition home or self-care (01) | DRG 463 ==
LOC: JER 22:57 → JERBED 01-14 03:37 → J7W 01-14 09:40
PROVIDERS: ADMIT Internal Medicine; ATTEND Internal Medicine
DX: N13.6 Pyonephrosis (principal); N30.01 Acute cystitis with hematuria; E66.9 Obesity, unspecified; Z68.30 Body mass index [BMI] 30.0-30.9, adult; K76.89 Other specified diseases of liver; D72.829 Elevated white blood cell count, unspecified; K76.0 Fatty (change of) liver, not elsewhere classified; K40.90 Unilateral inguinal hernia, without obstruction or gangrene, not specified as recurrent; K57.90 Diverticulosis of intestine, part unspecified, without perforation or abscess without bleeding; Z91.19 Patient's noncompliance with other medical treatment and regimen
CPT/HCPCS: 36415; 71045-TC-FY; 74176-TC; 76705-TC; 80053; 81003; 85025; 85610; 85730; 87077; 87086; 93005; 93010; 99285-25; J7030